=== PATIENT | male | born 1970 | race Hispanic/Latino ===

== ENCOUNTER 2019-01-20 15:56 | Emergency (ER) | payer MEDICAID, OTHER ==
[2019-01-20 15:57] VITALS: BMI 25.7
--- NOTE | 2019-01-20 16:11 | C.PDOC ---
History Of Present Illness 48 y/o male, with history of alcohol abuse and depression, comes in to ED for psychiatric evaluation. States he is homeless, detached from family, and has no friends. Patient does state he has suicidal ideation and thinks about overdosing on medications, but he has no plan and doesnt have any medication. Patient has been admitted here to psych unit in the past for depression. He denies other significant illnesses. Denies headache, fever, chills, SOB, chest pain, nausea, or vomiting. Time Seen by Provider: 01/20/19 16:01 Chief Complaint (Nursing): Psychiatric Evaluation History Per: Patient History/Exam Limitations: no limitations Onset/Duration Of Symptoms: Days Current Symptoms Are (Timing): Still Present Past Medical History Reviewed: Historical Data, Nursing Documentation, Vital Signs - Medical History PMH: Anxiety, Depression, Hepatitis - [facility] Procedures CONTRAST ARTHROGRAM (10/16/02) DRUG DETOXIFICATION (09/24/14) GROUP PSYCHOTHERAPY (01/10/16) INDIVIDUAL PSYCHOTHERAPY, SUPPORTIVE (01/10/16) MEDICATION MANAGEMENT (01/10/16) Family History: States: No Known Family Hx - Social History Hx Tobacco Use: Yes Hx Alcohol Use: No (Vodka) Hx Substance Use: No - Immunization History Hx Tetanus Toxoid Vaccination: No Hx Influenza Vaccination: No Hx Pneumococcal Vaccination: No Review Of Systems Except As Marked, All Systems Reviewed And Found Negative. Constitutional: Negative for: Fever, Chills Cardiovascular: Negative for: Chest Pain Respiratory: Negative for: Shortness of Breath Gastrointestinal: Negative for: Nausea, Vomiting Neurological: Negative for: Headache Psych: Positive for: Depression, Suicidal ideation Physical Exam - Physical Exam Appears: Non-toxic, No Acute Distress Skin: Warm, Dry Head: Normacephalic Eye(s): bilateral: Normal Inspection Oral Mucosa: Moist Neck: Supple Respiratory: Normal Breath Sounds, No Rales, No Rhonchi, No Wheezing Gastrointestinal/Abdominal: Soft, No Tenderness Extremity: Bilateral: Atraumatic, Normal ROM Neurological/Psych: Oriented x3, Normal Speech (speaking clearly) Gait: Steady ED Course And Treatment - Laboratory Results Result Diagrams: 01/20/19 16:40 01/20/19 16:40 O2 Sat by Pulse Oximetry: 95 (RA) Pulse Ox Interpretation: Normal Medical Decision Making Medical Decision Making: Plan: --Labs --UA Pending crisis evaluation. Disposition - Disposition Disposition Time: 18:47 Condition: GUARDED Forms: [facility] ([facility]) - Clinical Impression Clinical Impression: Alcohol abuse, Depressed - Scribe Statement The provider has reviewed the documentation as recorded by the [place]it[place] Key Provider Attestation: All medical record entries made by the Scribe were at my direction and personally dictated by me. I have reviewed the chart and agree that the record accurately reflects my personal performance of the history, physical exam, medical decision making, and the department course for this patient. I have also personally directed, reviewed, and agree with the discharge instructions and disposition. Physician Patient Turnover Patient Signed Over To: Rich Kendall Handoff Comments: pending dispo by crisis
[2019-01-20 16:56] LABS: BASO % 0.5 % (0.0-2.0); EOS % 0.5 % (0.0-4.0); HEMOGLOBIN 14.9 g/dL (12.0-18.0); LYMPH # 1.9 K/uL (1.0-4.3); MEAN CELL VOLUME 89.7 fL (80.0-94.0); MEAN CORPUSCULAR HEMOGLOBIN 30.9 pg (27.0-31.0); MEAN CORPUSCULAR HGB CONC 34.5 g/dL (33.0-37.0); MEAN PLATELET VOLUME 8.1 fL (7.2-11.7); MONO # 0.4 K/uL (0.0-0.8); MONO % 6.5 % (0.0-10.0); NEUT # 4.1 K/uL (1.8-7.0); NEUT % 62.5 % (50.0-75.0); RBC 4.81 Mil/uL (4.40-5.90); RED CELL DISTRIBUTION WIDTH 14.5 % (11.5-14.5); WHITE BLOOD COUNT 6.5 K/uL (4.8-10.8)
[2019-01-20 17:03] LABS: ALB/GLOB RATIO 1.2 (1.0-2.1); ALBUMIN 4.3 g/dL (3.5-5.0); ALT/SGPT 216 U/L (21-72); AST/SGOT 122 U/L (17-59); BLOOD UREA NITROGEN 10 mg/dL (9-20); CALCIUM 8.8 mg/dl (8.6-10.4); GFR NON-AFRICAN AMERICAN > 60
[2019-01-20 17:50] LABS: SQUAMOUS EPITHIAL < 1 /hpf (0-5); URINE BACTERIA RARE (<OCC); URINE BILIRUBIN NEGATIVE (NEGATIVE); URINE BLOOD 1+ (NEGATIVE); URINE CLARITY Hazy (Clear); URINE COLOR Yellow (YELLOW); URINE GLUCOSE (UA) NORMAL (Normal); URINE LEUKOCYTE ESTERASE TRACE Leu/uL (Negative); URINE PROTEIN NEGATIVE (NEGATIVE)
[2019-01-20 18:30] LABS: BARBITURATES, UR NEGATIVE (NEGATIVE); BENZODIAZEPINES, UR NEGATIVE (NEGATIVE); OPIATES, UR NEGATIVE (NEGATIVE); PHENCYCLIDINE, UR NEGATIVE (NEGATIVE)
[2019-01-21 00:31] VITALS: BP 147/99; PULSE 62; RESP 20; TEMP 98; O2SAT 97
--- NOTE | 2019-01-21 15:40 | RAD ---
Date of service: 01/20/2019 HISTORY: med clear COMPARISON: Comparison chest dated 08/20/2016. TECHNIQUE: 1 view obtained. FINDINGS: LUNGS: Minimal bibasilar atelectasis PLEURA: No significant pleural effusion identified, no pneumothorax apparent. CARDIOVASCULAR: No aortic atherosclerotic calcification present. Normal cardiac size. No pulmonary vascular congestion. OSSEOUS STRUCTURES: No significant abnormalities. VISUALIZED UPPER ABDOMEN: Normal. OTHER FINDINGS: None. IMPRESSION: Minimal bibasilar atelectasis
--- NOTE | 2019-01-22 13:33 | CARD ---
APPROVED REPORT Date of service: 01/20/2019 EKG Measurement Heart [id number] <Conclusion> Normal sinus rhythm can not r/o old iwmi
== END 2019-01-21 01:00 | disposition short-term general hospital (02) ==
LOC: C.ER 15:56
DX: F10.10 Alcohol abuse, uncomplicated (principal); F32.9 Major depressive disorder, single episode, unspecified; Z59.0 Homelessness; Z72.0 Tobacco use